=== PATIENT | male | born 1990 ===

== ENCOUNTER 2018-09-10 17:13 | Emergency (ER) | payer MEDICAID ==
[2018-09-10 17:20] VITALS: BMI 29.9
[2018-09-10 17:21] VITALS: O2SAT 100
--- NOTE | 2018-09-10 18:23 | C.PDOC ---
History Of Present Illness 27 year old male presents to the ED for evaluation of throat pain which began around 3 days ago. Patient admits to sick contact with his children, who have been sick with similar symptoms. Patient denies fever, chills. Time Seen by Provider: 09/10/18 17:23 Chief Complaint (Nursing): ENT Problem History Per: Patient History/Exam Limitations: None Onset/Duration Of Symptoms: Days (3) Current Symptoms Are (Timing): Still Present Past Medical History Reviewed: Historical Data, Nursing Documentation, Vital Signs Vital Signs: Last Vital Signs Temp 98.3 F 09/10/18 17:20 Pulse 80 09/10/18 17:20 Resp 16 09/10/18 17:20 BP 124/72 09/10/18 17:20 Pulse Ox 100 09/10/18 17:20 - Medical History PMH: No Chronic Diseases Surgical History: No Surg Hx Family History: States: Unknown Family Hx - Social History Hx Alcohol Use: No Hx Substance Use: No - Immunization History Hx Tetanus Toxoid Vaccination: No Hx Influenza Vaccination: No Hx Pneumococcal Vaccination: No Review Of Systems Constitutional: Negative for: Fever, Chills ENT: Positive for: Throat Pain Physical Exam - Physical Exam Appears: Non-toxic, No Acute Distress Skin: Normal Color, Warm, Dry Head: Atraumatic, Normacephalic Eye(s): bilateral: Normal Inspection Ear(s): Bilateral: Normal Nose: Normal, No Discharge Oral Mucosa: Moist Throat: Erythema, No Exudate, Other (uvula at midline ) Neck: Supple Lymphatic: Adenopathy (right-sided, submandibular ) Chest: Symmetrical, No Deformity, No Tenderness Cardiovascular: Rhythm Regular Respiratory: Normal Breath Sounds, No Rales, No Rhonchi, No Wheezing Extremity: Normal ROM Neurological/Psych: Normal Speech, Normal Cognition ED Course And Treatment O2 Sat by Pulse Oximetry: 100 (on RA) Pulse Ox Interpretation: Normal Progress Note: Amoxicillin PO, Decadron IM and Motrin PO given. On reassessment, patient is resting comfortably, showing no signs of distress and is stable for discharge. Patient is advised to follow up with his PMD within 1-2 days for further evaluation. Disposition - Disposition Disposition: HOME/ ROUTINE Disposition Time: 18:21 Condition: STABLE Additional Instructions: Follow up with PMD within 1-2 days. Return to ED if feel worse. Prescriptions: Amoxicillin [Amoxil 500 mg Cap] 500 mg PO Q8 #30 cap Ibuprofen [Motrin Tab] 600 mg PO Q8 #30 tab Instructions: Sore Throat in Adults Forms: [facility] ([employer]) - Clinical Impression Clinical Impression: Pharyngitis - PA / ANIMAL CONTROL SPECIALIST / Resident Statement MD/DO has reviewed & agrees with the documentation as recorded. - Scribe Statement The provider has reviewed the documentation as recorded by the Scribe (Alyssia Silverio) All medical record entries made by the Scribe were at my direction and personally dictated by me. I have reviewed the chart and agree that the record accurately reflects my personal performance of the history, physical exam, medical decision making, and the department course for this patient. I have also personally directed, reviewed, and agree with the discharge instructions and disposition.
[2018-09-10 18:24] VITALS: BP 114/70; PULSE 67; RESP 20; TEMP 98
== END 2018-09-10 18:27 | disposition home or self-care (01) ==
LOC: C.ER 17:13
DX: J02.9 Acute pharyngitis, unspecified (principal)
CPT/HCPCS: 96372; 99283; J1100